=== PATIENT | male | born 1950 | race Caucasian/White ===

== ENCOUNTER 2018-01-23 20:12 | Inpatient (IN) | payer OTHER ==
[~2018-01-23] VITALS: Ht 172.7 cm; Wt 77.1 kg
[~2018-01-23 20:12] MED LIST: ASPI81CT89 PO; DICL-388 PO; LORA10TA19 PO; ORE25 PO; SYN.075 PO
--- NOTE | 2018-01-23 20:22 | NUR ---
PT TAKEN TO BED 2
[2018-01-23 20:23] VITALS: BP 155/91
--- NOTE | 2018-01-23 20:26 | NUR ---
67 Y/O M BIB W/C/O ABD PAIN X3DAYS. PT STATES N/V DENIES DIARRHEA; SKIN IS INTACT, PINK/WARM/DRY; AAOX4, PERRL, WITH EVEN AND STEADY GAIT; LUNGS CLEAR BL, BREATHING UNLABORED; HR EVEN AND REGULAR, BL PERIPHERAL PULSES PRESENT; BS ACTIVE X4, NO HEPATOSPLENOMEGALLY PALPATED, RESONANT TO PERCUSSION; PT DENIES ANY FEVER, CP, SOB, OR COUGH AT THIS TIME; PT STATES 7/10 PAIN AT THIS TIME IN ABDOMEN THATS FEELS LIKE AN ACHING SENSATION; VSS; PATIENT POSITIONED FOR COMFORT; HOB ELEVATED; BEDRAILS UP X2; BED DOWN.
--- NOTE | 2018-01-23 20:43 | NUR ---
Dr. Will evaluating patient at bedside.
[2018-01-23] MEDS ORDERED: DICYCLOMINE 20 MG/2 ML VIAL IM ONE (20:45)
[2018-01-23 21:14] LABS: ANION GAP 10.2 (8-16); CARBON DIOXIDE 32.6 mmol/L (21-32); CREATININE 1.5 mg/dL (0.7-1.3); POTASSIUM 4.8 mmol/L (3.5-5.1)
[2018-01-23 21:19] LABS: ALBUMIN 4.6 g/dL (3.4-5.0); TOTAL BILIRUBIN 0.6 mg/dL (0.0-1.0)
--- NOTE | 2018-01-23 21:24 | NUR ---
PT RETURN FROM CT
[2018-01-23 21:35] LABS: BASOPHILS % (AUTO) 0.4 % (0.0-2.0); EOSINOPHILS # (AUTO) 0.1 K/uL (0-0.4); EOSINOPHILS % (AUTO) 1.2 % (0.0-4.0); HEMATOCRIT 38.9 % (36-52); HEMOGLOBIN 13.2 g/dL (12.0-18.0); LYMPHOCYTES % (AUTO) 24.8 % (20.5-51.1); MEAN CORPUSCULAR HEMOGLOBIN 31 pg (27-31); MEAN CORPUSCULAR HGB CONC 34 g/dL (33-37); MONOCYTES # (AUTO) 0.5 K/uL (0.8-1.0); NEUTROPHILS # (AUTO) 2.6 K/uL (1.8-7.7); NEUTROPHILS % (AUTO) 61.6 % (42.2-75.2); PLATELET COUNT (AUTO) 169 K/uL (140-450); RED BLOOD CELL COUNT(AUTO) 4.32 MIL/uL (4.20-6.10); WHITE BLOOD COUNT (AUTO) 4.2 K/uL (4.8-10.8)
--- NOTE | 2018-01-23 22:30 | NUR ---
PT RESTING COMFORTABLY IN BED. NO S/S OF DISTRESS NOTED
[2018-01-23] MEDS ORDERED: NACL 0.9% 2,000 ML IV ONE (23:00)
[2018-01-23] MEDS ORDERED: DEXT 5% / NACL 0.9% 500 ML IV ONE (23:20)
[2018-01-23] MEDS ORDERED: ZOLPIDEM 5 MG TAB PO PRN (23:20)
[2018-01-23] MEDS ORDERED: ACETAMINOPHEN 325 MG TAB PO PRN (23:20)
[2018-01-23] MEDS ORDERED: ONDANSETRON 4 MG/2 ML VIAL IVP PRN (23:20)
[2018-01-23 23:30] LABS: PROTHROMBIN TIME 9.8 secs (10.8-13.4)
--- NOTE | 2018-01-23 23:40 | NUR ---
RECEIVED REPORT FROM SOLE ROUNDER FOR CONTINUITY OF CARE. PT IS A/OX4, ON ROOM AIR. PT IS ABLE TO MAKE NEEDS KNOWN, ABLE TO FOLLOW COMMANDS. RESPIRATIONS EVEN AND UNLABORED AT THE MOMENT. PT SKIN IS INTACT. PT HAS 20G IV TO RIGHT HAND, ASYMPTOMATIC, INTACT AND PATENT. DISCUSSED PLAN OF CARE WITH PT, PT VERBALIZED UNDERSTANDING. MRSA SWAB OBTAINED AND SENT TO LAB. VITAL SIGNS WITHIN NORMAL LIMITS. WILL GATHER SUPPLIES FOR NGT. PT STABLE, NO SIGNS OF DISTRESS NOTED AT THIS TIME. BED IN LOWEST POSITION, BED ALARM ON. CALL LIGHT WITHIN REACH, WILL CONTINUE TO MONITOR.
--- NOTE | 2018-01-23 23:47 | NUR ---
PER DR. ROSENBERG, PT IS TO GO TO FLOOR AND RECIEVE NG TUBE THERE.
--- NOTE | 2018-01-23 23:50 | NUR ---
Patient will be admitted to care of DR. GIBSON. Admited to [facility]. Will go to [id number]. Belongings list completed. Report to AZRA REYES.
--- NOTE | 2018-01-24 00:05 | NUR ---
INSERTED NGT, PT TOLERATED WELL, SECRETIONS STARTED COMING OUT OF NGT IMMEDIATELY. ASKED DR FISHMAN IF HE COULD ORDER X-RAY TO CHECK PLACEMENT, DR AGREED. PT IS NOW CONNECTED TO LOW INTERMITTENT SUCTION.
[2018-01-24 00:09] LABS: FREE T4 (FREE THYROXINE) 1.29 ng/dL (0.76-1.46); MAGNESIUM 2.5 mg/dL (1.8-2.4); THYROID STIMULATING HORMONE 0.35 uIU/mL (0.34-3.74)
[2018-01-24 01:00] VITALS: BP 139/77
[2018-01-24 01:02] LABS: BILIRUBIN,URINE NEGATIVE (NEGATIVE); BLOOD, URINE NEGATIVE (NEGATIVE); LEUKOCYTE ESTERASE ,URINE NEGATIVE (NEGATIVE); NITRITE, URINE NEGATIVE (NEGATIVE); UGLUCOSE NEGATIVE (NEGATIVE)
[2018-01-24 01:03] LABS: APPEARANCE,URINE CLEAR (CLEAR); COLOR,URINE YELLOW (YELLOW)
--- NOTE | 2018-01-24 02:09 | NUR ---
PT C/O NAUSEA. ADMINISTERED ZOFRAN, PT TOLERATED WELL.
--- NOTE | 2018-01-24 02:10 | NUR ---
X-RAY BRITANY CLAY CALLED TO INFORM THAT SMALL BOWEL FOLLOW THROUGH WILL BE DONE IN THE MORNING AROUND 07:30.
--- NOTE | 2018-01-24 05:26 | NUR ---
PT STABLE, NO SIGNS OF DISTRESS NOTED AT THIS TIME. BED IN LOWEST POSITION, BED ALARM ON. CALL LIGHT WITHIN REACH, WILL CONTINUE TO MONITOR.
--- NOTE | 2018-01-24 05:45 | NUR ---
PT SAYS NGT IS UNCOMFORTABLE AND WANTS TO KNOW IF IT IS REALLY NEEDED. EDUCATED PT ON WHY IT IS NEEDED, PT VERBALIZED UNDERSTANDING. PRINTED SOME INSTRUCTIONS AND INFORMATION ON SMALL BOWEL OBSTRUCTIONS IN [place] AND GAVE TO PT TO READ.
--- NOTE | 2018-01-24 07:36 | NUR ---
ENDORSED PT TO DAY SHIFT RN FOR CONTINUITY OF CARE. PT IS IN STABLE CONDITION.
--- NOTE | 2018-01-24 07:37 | NUR ---
RECEIVED REPORT FROM [employer]ET CONSULTANT RN FOR CONTINUITY OF CARE. PT IS A/OX4, ON ROOM AIR. PT IS CITIZEN OF [place] SPEAKING, AT BEDSIDE. RESPIRATIONS EVEN AND UNLABORED ON ROOM AIR. PT SKIN IS INTACT. PT HAS 20G IV TO RIGHT HAND, ASYMPTOMATIC, INTACT AND PATENT INFUSING D5 NS @ 100 ML/HR. PATIENT HAS NG TUBE WITH INTERMITTENT LOW TO MEDIUM SUCTION PER DOCTOR'S ORDERS. PATIENT TOLERATING IT WELL. PATIENT DENIES PAIN AND NAUSEA. PT STABLE, NO SIGNS OF DISTRESS NOTED AT THIS TIME. UPDATED BOARD. SAFETY PRECAUTION IN PLACE, BED IN LOWEST POSITION, CALL LIGHT WITHIN REACH, WILL CONTINUE TO MONITOR PATIENT.
[2018-01-24 08:00] VITALS: BP 143/74
[2018-01-24 08:37] LABS: CHOL/HDL RATIO 4.3 (1-4.5)
--- NOTE | 2018-01-24 08:45 | NUR ---
XRAY HERE TO START SMALL BOWEL OBSTRUCTION FOLLOW THROUGH. PATIENT IN STABLE CONDITION, AT BEDSIDE. WILL CONTINUE TO MONITOR.
[2018-01-24] MEDS: DOCUSATE SODIUM 100 MG GELCAP PO SCH ×2 (09:00→21:07)
--- NOTE | 2018-01-24 09:15 | NUR ---
XRAY CALLED WITH CRITICAL INFORMATION ABOUT NG TUBE. INFORMED DR. INGRAM.
--- NOTE | 2018-01-24 10:45 | NUR ---
, DAUGHTER, AND GRANDSON JUANITA AT BEDSIDE. PATIENT AMBULATING AROUND ROOM ON STEADY GAIT. NO SIGNS OF DISTRESS NOTED. PATIENT DENIES PAIN AND NAUSEA. FAMILY MEMBERS BROUGHT PATIENT'S MEDICATION LIST. MEDICATION LIST GIVEN TO DR. URENA.
[2018-01-24] MEDS ORDERED: ALLO100T21 PO (10:46)
[2018-01-24] MEDS ORDERED: PYRI50TA12 PO (10:46)
[2018-01-24] MEDS ORDERED: LISI10TA11 PO (10:47)
[2018-01-24] MEDS ORDERED: LEVOTHYROXINE 0.075 MG TAB PO SCH (10:50)
[2018-01-24] MEDS ORDERED: PYRIDOXINE 50 MG TAB PO SCH (11:15)
--- NOTE | 2018-01-24 11:25 | NUR ---
PATIENT HAS BEEN SCREENED AND CATEGORIZED HIGH NUTRITION RISK. PATIENT WILL BE SEEN WITHIN 1-2 DAYS OF ADMISSION. 01/24/18 01/25/[address]
[2018-01-24] MEDS ORDERED: LEVOTHYROXINE 0.025 MG TAB PO SCH (11:30)
[2018-01-24] MEDS ORDERED: LEVOTHYROXINE 0.1 MG TAB PO SCH (11:30)
[2018-01-24] MEDS ORDERED: LISINOPRIL 10 MG TAB PO SCH (11:30)
[2018-01-24] MEDS ORDERED: HYDROCHLOROTHIAZIDE 25 MG TAB PO SCH (11:30)
--- NOTE | 2018-01-24 11:54 | NUR ---
PER CHEMICAL WASTE MANAGEMENT TECHNICIAN, SMALL BOWEL OBSTRUCTION FOLLOW THROUGH DONE. WILL AWAIT FOR RESULTS. PER THEIR RECOMMENDATION, SUCTION FOR NG TUBE STAY OFF FOR NOW. RN VERBALIZED UNDERSTANDING.
--- NOTE | 2018-01-24 12:33 | NUR ---
ORDERED MEDICATIONS GIVEN. PATIENT TOLERATED THEM WELL. AT BEDSIDE. PATIENT AND ASKED IF SUCTION FOR NG TUBE IS ON, INFORMED THEM PER [employer] TEAM LEADER'S RECOMMENDATION, SUCTION STILL OFF BUT WILL BE TURNED BACK ON AT 1300.
--- NOTE | 2018-01-24 13:00 | NUR ---
SUCTION RESTARTED AGAIN. PATIENT TOLERATING IT WELL. WILL CONTINUE TO MONITOR PATIENT.
[2018-01-24 14:42] LABS: ANION GAP 15.8 (8-16); CARBON DIOXIDE 24.3 mmol/L (21-32); CREATININE 1.2 mg/dL (0.7-1.3); POTASSIUM 4.1 mmol/L (3.5-5.1)
--- NOTE | 2018-01-24 15:30 | NUR ---
PATIENT AND ASKED WHEN DR. GALLO WILL BE COMING, INFORMED THEM THAT HE WILL BE COMING TODAY TO CONSULT. NO KNOWN TIME AT THIS TIME.
[2018-01-24 16:00] VITALS: BP 132/73
--- NOTE | 2018-01-24 16:05 | NUR ---
PATIENT SITTING UP IN BED, NO SIGNS OF DISTRESS OR SOB NOTED ON ROOM AIR. VS WNL. PATIENT DENIES PAIN OR NAUSEA. AT BEDSIDE. WILL CONTINUE TO MONITOR PATIENT.
--- NOTE | 2018-01-24 18:45 | NUR ---
IV FLUIDS FINISHED. SPOKE TO DOCTOR العلي ABOUT IT BECAUSE IT WAS ONE TIME ORDER ONLY. HE SAID HE WILL PUT IN NEW ORDERS. WAITING FOR MD'S ORDERS.
--- NOTE | 2018-01-24 19:09 | NUR ---
REPORT GIVEN TO CHURN OPERATOR NURSE AT BEDSIDE FOR CONTINUITY OF CARE. PATIENT IN STABLE CONDITION.
--- NOTE | 2018-01-24 19:10 | NUR ---
RECEIVED PT IN STABLE CONDITION FROM AM NURSE. PT IS MED SURG. WITH NO C/O ANY DISCOMFORT NOR PAIN NOTED. FAMILY AT BEDSIDE. NGT TO INTERMITTENT SUCTION WITH SCANTY DRAINAGE NOTED , BROWN[place] IN COLOR. HAS IVF INFUSING WELL ON THE RT HAND #20. CLEAR AND PATENT. PLAN OF CARE DISCUSSED AND VERBALIZED UNDERSTANDING. PT IS NPO EXCEPT MEDS. BED ON LOW POSITION. CALL LIGHT AND UIRNAL PLACED WITHIN EASY REACH. WILL CONTINUE TO MONITOR.
[2018-01-24] MEDS ORDERED: DEXT 5% /NACL 0.9% 1,000 ML IV SCH (20:00)
--- NOTE | 2018-01-24 21:07 | NUR ---
NGT CLAMPED AFTER PO MEDS GIVEN. WILL CONTINUE AFTER AN HOUR.
--- NOTE | 2018-01-24 22:30 | NUR ---
MADE ROUNDS. PT IS ASLEEP. NO S/S OF ANY DISCOMFORT NOTED.
[2018-01-24 23:50] VITALS: BP 139/74
--- NOTE | 2018-01-25 02:00 | NUR ---
DR. GALLO CAME SEEN AND EXAMINED PT. HE SAID TO VA NGT NOW. DR. SMITH ALSO PRESENT AND WITH DR. GALLO AT THIS TIME.
--- NOTE | 2018-01-25 02:10 | NUR ---
EXPLAINED TO PT THE NEED TO DC NGT PER DR. GALLO.
--- NOTE | 2018-01-25 02:45 | NUR ---
PT GOT UP TO THE BATHROOM AND HAD A LIQUID STOOL.
[2018-01-25] MEDS ORDERED: NACL 0.9% 1,000 ML IV SCH (03:00)
--- NOTE | 2018-01-25 04:00 | NUR ---
PT IS SLEEPING AT THIS TIME. NO S/S OF DISCOMFORT NOTED.
[2018-01-25] MEDS ORDERED: LEVOTHYROXINE 0.025 MG TAB PO SCH (06:30)
[2018-01-25] MEDS ORDERED: LEVOTHYROXINE 0.1 MG TAB PO SCH (06:30)
--- NOTE | 2018-01-25 07:02 | NUR ---
ENDORSED PT IN STABLE CONDITION TO AM NURSE FOR CONTINUITY OF CARE.
--- NOTE | 2018-01-25 07:03 | NUR ---
RECEIVED REPORT FROM MEDIA RELATIONS MANAGER RN FOR CONTINUITY OF CARE. PT IS A/OX4. PT IS [place] SPEAKING. PATIENT RESTING IN BED. RESPIRATIONS EVEN AND UNLABORED ON ROOM AIR. PT SKIN IS INTACT. PT HAS 20G IV TO RIGHT HAND, ASYMPTOMATIC, INTACT AND PATENT INFUSING NS @ 70 ML/HR WELL. PT STABLE, NO SIGNS OF DISTRESS NOTED AT THIS TIME. UPDATED BOARD. SAFETY PRECAUTION IN PLACE, BED IN LOWEST POSITION, CALL LIGHT WITHIN REACH, WILL CONTINUE TO MONITOR PATIENT.
[2018-01-25 07:34] LABS: BASOPHILS % (AUTO) 0.4 % (0.0-2.0); EOSINOPHILS % (AUTO) 1.1 % (0.0-4.0); HEMATOCRIT 32.9 % (36-52); HEMOGLOBIN 11.2 g/dL (12.0-18.0); LYMPHOCYTES % (AUTO) 30.4 % (20.5-51.1); MEAN CORPUSCULAR HEMOGLOBIN 31 pg (27-31); MEAN CORPUSCULAR HGB CONC 34 g/dL (33-37); MEAN CORPUSCULAR VOLUME 90.3 fL (80-94); MONOCYTES # (AUTO) 0.5 K/uL (0.8-1.0); MONOCYTES % (AUTO) 15.1 % (1.7-9.3); NEUTROPHILS # (AUTO) 1.7 K/uL (1.8-7.7); PLATELET COUNT (AUTO) 147 K/uL (140-450); RED BLOOD CELL COUNT(AUTO) 3.64 MIL/uL (4.20-6.10); RED CELL DISTRIBUTION WIDTH 14.4 % (11.6-13.7); WHITE BLOOD COUNT (AUTO) 3.2 K/uL (4.8-10.8)
[2018-01-25 07:44] LABS: ANION GAP 11.8 (8-16); POTASSIUM 3.8 mmol/L (3.5-5.1)
[2018-01-25 08:00] VITALS: BP 121/73
[2018-01-25] MEDS ORDERED: ALLOPURINOL 100 MG TAB PO SCH (09:00)
[2018-01-25] MEDS ORDERED: PYRIDOXINE 50 MG TAB PO SCH (09:00)
[2018-01-25] MEDS ORDERED: LISINOPRIL 10 MG TAB PO SCH (09:00)
[2018-01-25] MEDS ORDERED: HYDROCHLOROTHIAZIDE 25 MG TAB PO SCH (09:00)
[2018-01-25] MEDS: DOCUSATE SODIUM 100 MG GELCAP PO SCH (09:29)
--- NOTE | 2018-01-25 09:30 | NUR ---
ORDERED MEDICATIONS GIVEN. PATIENT TOLERATED IT WELL. NO SIGNS OF DISTRESS OR SOB NOTED ON ROOM AIR. PATIENT DENIES PAIN AND NAUSEA. AND GRANDSON JUANITA AT BEDSIDE. FAMILY REQUESTED FOR IMAGES OF IMAGING. WILL FORWARD THEIR REQUEST TO DR. URENA. WILL CONTINUE TO MONITOR PATIENT.
--- NOTE | 2018-01-25 10:15 | NUR ---
DR. URENA PUT IN IMAGE REQUEST CD ORDER FROM XRAY. XRAY CALLED TO SAY THAT CD READY TO BE PICKED UP. CD PICKED UP AND PLACED IN PATIENT'S CHARGE IN PREPARATION FOR HIS DISCHARGE.
--- NOTE | 2018-01-25 12:00 | NUR ---
INFORMED PATIENT ABOUT DISCHARGE ORDER IF HE IS ABLE TO TOLERATE REGULAR DIET. PATIENT VERBALIZED UNDERSTANDING.
[2018-01-25] MEDS ORDERED: DOCU-299 PO (13:21)
--- NOTE | 2018-01-25 14:15 | NUR ---
DISCHARGE INSTRUCTIONS AND EDUCATION GIVEN. [employer] AUTO BODY SERVICE MECHANIC #[id number]. PATIENT AND VERBALIZED UNDERSTANDING. IV REMOVED, IV CATHTER INTACT, MINIMAL BLOOD NOTED. PATIENT REQUESTED FOR PNEUMOCOCCAL VACCINE MENTIONED ON ADMIT. RN WILL PASS THIS MESSAGE TO DR. URENA.
--- NOTE | 2018-01-25 14:53 | NUR ---
01/25/18 [facility] NUTRITION EDUCATION PROVIDED PT WITH TRANSLATED NUTRITION EDUCATIONAL HANDOUTS FOR NAUSEA/VOMITING SYMPTOM MANAGEMENT, GENERAL NUTRITION, AND TIPS TO REDUCE SODIUM IN HIS DIET. PT GESTURED UNDERSTANDING. NO FAMILY AT TIME OF RD VISIT. LIZBET CAI RD
[2018-01-25] MEDS ORDERED: PNEUMOCOCCAL VACCINE 23 MCG/0.5 ML VIAL IMVAC SCH (15:00)
--- NOTE | 2018-01-25 15:09 | NUR ---
NEW ORDER IN FROM DR. URENA. MEDICATION GIVEN. PATIENT TOLERATING IT WELL. PATIENT IS DRESSED AND WAITING FOR DAUGHTER TO COME PICK HIM UP.
--- NOTE | 2018-01-25 15:25 | NUR ---
PATIENT AMBULATED OFF FLOOR ON STEADY GAIT WITH AND RN AT SIDE. PATIENT TOOK ALL HIS BELONGINGS WITH HIM. PATIENT IN STABLE CONDITION.
== END 2018-01-25 15:25 | disposition home or self-care (01) | DRG 388 ==
LOC: MED 20:12 → MTU 23:16
PROVIDERS: ADMIT General Practice; ATTEND General Practice
DX: K56.600 Partial intestinal obstruction, unspecified as to cause (principal); N17.0 Acute kidney failure with tubular necrosis; I10 Essential (primary) hypertension; E03.9 Hypothyroidism, unspecified; E83.41 Hypermagnesemia; M19.90 Unspecified osteoarthritis, unspecified site; E83.39 Other disorders of phosphorus metabolism; D72.819 Decreased white blood cell count, unspecified; D72.810 Lymphocytopenia; I45.10 Unspecified right bundle-branch block; Z87.891 Personal history of nicotine dependence; Z79.82 Long term (current) use of aspirin; Z79.899 Other long term (current) drug therapy
CPT/HCPCS: 36415; 71045; 74250; 80048; 80053; 81003; 82150; 83036; 83690; 83735; 83880; 84100; 84439; 84443; 84484; 85025; 85610; 85730; 86886; 86900; 86901; 87081; 90732; 93005; 96372; 99285; J0500; J2405; J7030; J7042; Q0092